=== PATIENT | female | born 1980 | race Two or more races ===

== ENCOUNTER → 2016-05-26 | Outpatient (CLI) | payer OTHER ==
--- NOTE | 2016-05-26 15:22 | RAD ---
Indication: Confirm placement of IUD. The uterus measures 9.7 x 6.4 x 4.6 cm. There is an IUD well centered in the endometrium. No uterine mass is detected. The right ovary measures 4.2 x 3.2 x 3.3 cm and left ovary measures 3.3 x 2.2 x 2.0 cm. The right ovary does contain a 4.2 x 3.3 cm cyst. No free fluid is detected. Impression: 1. IUD in an appropriate location within the endometrium. 2. 4.2 cm right ovarian cyst.
== END | disposition home or self-care (01) ==
LOC: US 12:56
PROVIDERS: ATTEND Family Medicine
DX: T83.32XA Displacement of intrauterine contraceptive device, initial encounter (principal); N83.201 Unspecified ovarian cyst, right side
CPT/HCPCS: 76856